=== PATIENT | male | born 2000 | race Two or more races ===

== ENCOUNTER 2021-10-26 09:23 | Emergency (ER) | payer OTHER ==
[2021-10-26 09:34] VITALS: BP 160/80; PULSE 73; RESP 18; TEMP 98.9; BMI 23.0
[2021-10-26] MEDS ORDERED: FLUORESCEIN NA 1 EA STRIP OS ONE (09:47)
[2021-10-26] MEDS ORDERED: TETRACAINE 0.5% HCL 0.6ML DROPPER.BOTTLE OS ONE (09:47)
[2021-10-26] MEDS ORDERED: TETRACAINE 0.5% OPHTH SOLN 2 ML BOTTLE ONE (09:53)
[2021-10-26] MEDS ORDERED: FLUORESCEIN NA 1 EA STRIP ONE (09:53)
== END 2021-10-26 10:17 | disposition home or self-care (01) ==
LOC: JERFT 09:23
DX: S05.02XA Injury of conjunctiva and corneal abrasion without foreign body, left eye, initial encounter (principal); Y99.8 Other external cause status
CPT/HCPCS: 99283-25